=== PATIENT | male | born 1950 | race Caucasian/White ===

== ENCOUNTER → 2020-08-13 10:27 | Outpatient (CLI) | payer BC ==
[2010-12-09 12:57] VITALS: BMI 26.0
== END | disposition home or self-care (01) ==
LOC: D.LAB 10:27
PROVIDERS: ATTEND Internal Medicine Pulmonary Disease
DX: Z20.822 Contact with and (suspected) exposure to COVID-19 (principal)

== ENCOUNTER → 2020-08-19 09:42 | Outpatient (CLI) | payer BC ==
[2010-12-09 12:57] VITALS: BMI 26.0
== END | disposition home or self-care (01) ==
LOC: D.RT 09:42
PROVIDERS: ATTEND Internal Medicine Pulmonary Disease
DX: J43.9 Emphysema, unspecified (principal); R06.09 Other forms of dyspnea